=== PATIENT | male | born 1985 | race Caucasian/White ===

== ENCOUNTER → 2017-08-18 | Outpatient (REF) ==
[2017-08-21 11:11] LABS: HEPATITIS B SURFACE ANTIBODY POSITIVE (POSITIVE)
== END ==
LOC: M LAB 15:15
PROVIDERS: ATTEND Nurse Practitioner Adult Health
DX: Z02.1 Encounter for pre-employment examination (principal)

== ENCOUNTER 2021-04-01 03:38 | Emergency (ER) | payer OTHER ==
[~2021-04-01] VITALS: Ht 172.7 cm; Wt 82.0 kg
--- NOTE | 2021-04-01 04:59 | REPVR ---
PROCEDURE INFORMATION: Exam: XR Right Wrist Exam date and time: 04/01/2021 4:29 AM Age: 36 years old Clinical indication: Pain; Wrist; Right; Additional info: Injured during code 25 TECHNIQUE: Imaging protocol: XR Right wrist. Views: 3 or more views. COMPARISON: No relevant prior studies available. FINDINGS: Bones/joints: There is a questionable lucency in the trapezium on image 1. Soft tissues: Normal. IMPRESSION: Questionable fracture of the trapezium appreciated on 1 oblique view. Correlate with point tenderness. If clinically indicated CT scan may be obtained for better evaluation. Electronically signed by: Aris Hanley On 04/01/2021 04:58:38 AM
--- NOTE | 2021-04-01 05:00 | REPVR ---
PROCEDURE INFORMATION: Exam: XR Right Hand Exam date and time: 04/01/2021 4:29 AM Age: 36 years old Clinical indication: Pain; Wrist; Right; Additional info: Injured during code 25 TECHNIQUE: Imaging protocol: XR Right hand. Views: 3 or more views. COMPARISON: No relevant prior studies available. FINDINGS: Bones/joints: Again seen is a lucency at the corner of the trapezium on series 3 image 1. Soft tissues: Normal. IMPRESSION: Questionable fracture of the trapezium bone versus ossicle. Correlate with point tenderness . Electronically signed by: Aris Hanley On 04/01/2021 05:00:21 AM
--- NOTE | 2021-04-01 07:15 | REPVR ---
PROCEDURE INFORMATION: Exam: CT Right Upper Extremity Without Contrast, Wrist Exam date and time: 04/01/2021 6:18 AM Age: 36 years old Clinical indication: Pain; Wrist; Right; Additional info: R/O trapezium fracture TECHNIQUE: Imaging protocol: CT of the Right upper extremity without contrast was performed. Exam focused on the wrist. Radiation optimization: All CT scans at this facility use at least one of these dose optimization techniques: automated exposure control; mA and/or kV adjustment per patient size (includes targeted exams where dose is matched to clinical indication); or iterative reconstruction. COMPARISON: CR Wrist, complete RIGHT 04/01/2021 4:16 AM FINDINGS: Bones/joints: Normal. No acute fracture or dislocation. Soft tissues: Normal. IMPRESSION: No CT evidence of carpal bone fractures particularly no fracture seen in the trapezium corresponding to finding seen on x-ray. The finding on the x-ray was likely artifactual. Electronically signed by: Aris Hanley On 04/01/2021 07:15:39 AM
[2021-04-01 07:46] VITALS: BP 144/79
== END 2021-04-01 09:05 | disposition home or self-care (01) ==
LOC: M ED 03:38
DX: S63.501A Unspecified sprain of right wrist, initial encounter (principal); X50.9XXA Other and unspecified overexertion or strenuous movements or postures, initial encounter; Y92.238 Other place in hospital as the place of occurrence of the external cause; Y99.0 Civilian activity done for income or pay

== ENCOUNTER 2021-04-02 11:56 | Emergency (ER) | payer OTHER ==
[~2021-04-02] VITALS: Ht 172.7 cm; Wt 81.2 kg
[2021-04-02 11:57] VITALS: BP 154/84
== END 2021-04-02 13:38 | disposition left against medical advice (07) ==
LOC: M ED 11:56
DX: Z53.29 Procedure and treatment not carried out because of patient's decision for other reasons (principal)

== ENCOUNTER → 2021-04-16 | Outpatient (CLI) | payer OTHER ==
--- NOTE | 2021-04-16 12:04 | REP ---
INDICATION: PAIN. COMPARISON: 04/01/2021 four views without scaphoid view TECHNIQUE: Five views including scaphoid view FINDINGS: There is no evidence of an acute fracture or destructive osseous lesion. IMPRESSION: No evidence of an acute fracture. Since the patient complains of persistent pain in the region of the anatomical snuffbox and since CT is more sensitive in detecting tiny fractures it is recommended if a fracture is of clinical concern. <Electronically signed by Paul Sinclair > 04/16/21 1200
== END ==
LOC: M SOG 11:41
PROVIDERS: ATTEND Orthopaedic Surgery Sports Medicine
DX: S63.501D Unspecified sprain of right wrist, subsequent encounter (principal)

== ENCOUNTER 2021-04-23 10:45 | Outpatient (RCR) | payer OTHER | END 2021-04-26 | LOC: M PT 10:45 | PROVIDERS: ATTEND Orthopaedic Surgery Sports Medicine | DX: S63.501A Unspecified sprain of right wrist, initial encounter (principal) | CPT/HCPCS: 97010; 97035; 97110; 97140; 97162; G0283 ==

== ENCOUNTER 2021-05-25 10:44 | Outpatient (RCR) | payer OTHER | END 2021-05-26 | LOC: M PT 10:44 | PROVIDERS: ATTEND Orthopaedic Surgery Sports Medicine | DX: S63.501A Unspecified sprain of right wrist, initial encounter (principal); X58.XXXA Exposure to other specified factors, initial encounter | CPT/HCPCS: 97010; 97110; 97140; G0283 ==

== ENCOUNTER 2021-06-22 10:45 | Outpatient (RCR) | payer OTHER | END 2021-06-26 | LOC: M PT 10:45 | PROVIDERS: ATTEND Orthopaedic Surgery Sports Medicine | DX: S63.501D Unspecified sprain of right wrist, subsequent encounter (principal); X58.XXXD Exposure to other specified factors, subsequent encounter; Y92.89 Other specified places as the place of occurrence of the external cause ==

== ENCOUNTER 2021-07-22 07:45 | Outpatient (RCR) | payer OTHER | END 2021-07-27 | LOC: M PT 07:45 | PROVIDERS: ATTEND Orthopaedic Surgery Sports Medicine | DX: S63.501A Unspecified sprain of right wrist, initial encounter (principal) ==

== ENCOUNTER → 2022-07-26 | Outpatient (CLI) | payer OTHER | LOC: M SOG 08:27 | PROVIDERS: ATTEND Orthopaedic Surgery Hand Surgery | DX: M25.521 Pain in right elbow (principal) ==

== ENCOUNTER → 2022-09-30 | Outpatient (REF) | payer OTHER ==
[2022-09-30 11:58] LABS: APPEARANCE, URINE MANUAL HAZY (CLEAR); COLOR, URINE MANUAL YELLOW (YELLOW)
[2022-09-30 11:59] LABS: BILIRUBIN, URINE MANUAL NEGATIVE (NEGATIVE); BLOOD URINE MANUAL NEGATIVE (NEGATIVE); GLUCOSE, URINE (UA) MANUAL NEGATIVE (NEGATIVE); KETONE, URINE MANUAL NEGATIVE (NEGATIVE); LEUKOCYTE ESTERASE, URINE MAN NEGATIVE (NEGATIVE); NITRITE, URINE MANUAL NEGATIVE (NEGATIVE); PROTEIN, URINE MANUAL NEGATIVE (NEGATIVE); UROBILINOGEN, URINE MANUAL NORMAL (NORMAL)
[2022-09-30 12:18] LABS: RBC, URINE NONE SEEN /hpf (0-3); SQUAMOUS EPITHELIAL CELL URINE SMALL AMOUNT /hpf (SMALL AMT); WBC, URINE 0-1 /hpf (0-3)
[2022-09-30 12:19] LABS: BACTERIA, URINE NONE SEEN
[2022-09-30 12:20] LABS: AMORPHOUS SEDIMENT, URINE SMALL AMOUNT (NEGATIVE); HYALINE CAST, URINE NONE SEEN /lpf (0-1)
[2022-09-30 13:15] LABS: MONO SCRN NEGATIVE (NEGATIVE)
[2022-09-30 14:00] LABS: ALBUMIN 3.7 GM/DL (3.2-5.2); ALT/SGPT 28 U/L (12-78); BILIRUBIN,TOTAL 0.3 MG/DL (0.2-1.0); BLOOD UREA NITROGEN 10 MG/DL (7-18); CALCIUM LEVEL 9.7 MG/DL (8.5-10.1); CARBON DIOXIDE LEVEL 29 MEQ/L (21-32); CHLORIDE LEVEL 102 MEQ/L (98-107); CREATININE FOR GFR 0.83 MG/DL (0.70-1.30); GLOMERULAR FILTRATION RATE > 60.0 (>60); GLUCOSE, FASTING 95 MG/DL (70-100); POTASSIUM SERUM 4.2 MEQ/L (3.5-5.1); SODIUM LEVEL 136 MEQ/L (136-145); TOTAL PROTEIN 7.9 GM/DL (6.4-8.2)
== END ==
LOC: M LAB REF 11:11
PROVIDERS: ATTEND Physician Assistant
DX: R59.9 Enlarged lymph nodes, unspecified (principal); N39.0 Urinary tract infection, site not specified; M54.9 Dorsalgia, unspecified

== ENCOUNTER → 2023-04-06 | Outpatient (CLI) | payer OTHER | LOC: M SOG 08:14 | PROVIDERS: ATTEND Physician Assistant | DX: M25.531 Pain in right wrist (principal) ==

== ENCOUNTER 2023-07-04 13:29 | Emergency (ER) | payer OTHER ==
[~2023-07-04] VITALS: Ht 170.2 cm; Wt 75.6 kg
[2023-07-04 13:32] VITALS: TEMP 98.2
[2023-07-04] MEDS ORDERED: VITMTA PO (14:25)
[2023-07-04] MEDS ORDERED: CURC500C PO (14:25)
[2023-07-04] MEDS ORDERED: ASPE4PAD TOP (18:22)
[2023-07-04] MEDS ORDERED: METH-1165 PO (18:22)
[2023-07-04] MEDS ORDERED: KETO10TAB PO (18:22)
[2023-07-04 18:30] VITALS: BP 134/75; O2SAT 99
== END 2023-07-04 18:32 | disposition home or self-care (01) ==
LOC: M ED 13:29
DX: S29.012A Strain of muscle and tendon of back wall of thorax, initial encounter (principal); X58.XXXA Exposure to other specified factors, initial encounter; Y92.89 Other specified places as the place of occurrence of the external cause; Y93.89 Activity, other specified; Y99.8 Other external cause status; M50.30 Other cervical disc degeneration, unspecified cervical region; Z79.899 Other long term (current) drug therapy

== ENCOUNTER 2024-02-03 17:02 | Emergency (ER) | payer OTHER ==
[~2024-02-03] VITALS: Ht 172.7 cm; Wt 83.4 kg
[~2024-02-03 17:02] MED LIST: ASPE4PAD TOP; CURC500C PO; KETO10TAB PO; METH-1165 PO; VITMTA PO
[2024-02-03 19:47] VITALS: BP 130/82; TEMP 99.5; O2SAT 98
== END 2024-02-03 19:49 | disposition home or self-care (01) ==
LOC: M ED 17:02
DX: S50.12XA Contusion of left forearm, initial encounter (principal); W19.XXXA Unspecified fall, initial encounter; Y92.009 Unspecified place in unspecified non-institutional (private) residence as the place of occurrence of the external cause; Y93.89 Activity, other specified; Y99.9 Unspecified external cause status

== ENCOUNTER 2025-07-14 08:13 | Emergency (ER) | payer OTHER ==
[~2025-07-14] VITALS: Ht 172.7 cm; Wt 87.2 kg
[2025-07-14] MEDS ORDERED: CYCL-707 PO (08:23)
[2025-07-14] MEDS ORDERED: MELO15TA28 PO (08:24)
[2025-07-14] MEDS ORDERED: METH-1165 PO (10:25)
[2025-07-14] MEDS: KETOROLAC 30 MG/ML 1 ML VIAL IM ONE (10:34)
[2025-07-14 10:40] VITALS: BP 127/68; TEMP 97.4; O2SAT 98
== END 2025-07-14 10:44 | disposition home or self-care (01) ==
LOC: M ED 08:13
DX: M54.12 Radiculopathy, cervical region (principal); Z79.899 Other long term (current) drug therapy
CPT/HCPCS: 96372; 99283; J1885

== ENCOUNTER → 2025-09-09 | Outpatient (CLI) | payer OTHER ==
[~2025-09-09] MED LIST changes: +CYCL-707 PO; +MELO15TA28 PO
== END ==
LOC: M PLAIMG 06:44
PROVIDERS: ATTEND Registered Nurse
DX: M54.2 Cervicalgia (principal)

== ENCOUNTER → 2025-11-05 | Outpatient (CLI) | payer OTHER | LOC: M RAD 08:34 | PROVIDERS: ATTEND Nurse Practitioner Family | DX: M54.16 Radiculopathy, lumbar region (principal) ==